=== PATIENT | female | born 1990 | race Caucasian/White ===

== ENCOUNTER 2017-03-14 14:42 | Emergency (ER) | payer MEDICAID, OTHER ==
[~2017-03-14] VITALS: Ht 162.6 cm; Wt 84.9 kg
[2017-03-14 15:27] LABS: HEMATOCRIT 38.4 % (34.6-47.8); WHITE BLOOD COUNT 10.4 x10^3/uL (3.4-10)
[2017-03-14] MEDS ORDERED: ALBUTEROL SULFATE 2.5 MG/3 ML NPPB ONE (15:30)
[2017-03-14 15:38] LABS: BLOOD UREA NITROGEN 11 mg/dL (7-18)
[2017-03-14 15:57] LABS: IS PT STATUS REG ER OR PRE ER? YES
[2017-03-14] MEDS ORDERED: ALBUTEROL/IPRATROPIUM 2.5MG/0.5MG, 3 ML ONE (16:28)
[2017-03-14 17:17] VITALS: BP 126/62
== END 2017-03-14 17:18 | disposition home or self-care (01) ==
LOC: ED 17:00
DX: R06.00 Dyspnea, unspecified (principal)
CPT/HCPCS: 36415; 71020; 80048; 82040; 84484; 85025; 93005; 94640; 99285; J7613